=== PATIENT | female | born 1960 | race Caucasian/White ===

== ENCOUNTER 2018-06-09 08:18 | Inpatient (IN) ==
[2018-06-09 08:26] VITALS: BMI 24.9
[2018-06-09] MEDS ORDERED: TORADOL 30 MG VIAL IVP ONE (08:40)
[2018-06-09] MEDS ORDERED: NS 1000 ML 1,000 ML IV ONE (08:40)
[2018-06-09] MEDS ORDERED: ZOFRAN INJ 4 MG VIAL IVP ONE (08:40)
--- NOTE | 2018-06-09 08:43 | DR.CP ---
HPI Time Seen Time Seen by Provider: 06/09/18 08:40 PCP Primary Care Physician: JOEY FULTON HPI Comment HPI Comment: PAIN MAINLY IN RIGHT FLANK AREA. MILD SOB PRESENT. NO FEVER OR DYSURIA. PAIN GETTING WORSE. Complaint Chief Complaint Doctor Comments: WOKE UP 05:00AM TODAY SYBSTERNAL SHARP PAIN RADIATING TO RIGHT FLANK AREA WITH NAUSEA AND VOMITING. Chief Complaint:: PT STATES AROUND 5 AM THIS MORNING SHE WOKE UP WITH SEVERE SHARP STABBING SUBSTERNAL CHEST PAIN THAT HAS RADIATED AROUND TO THEN RIGHT FLANK AND BACK AREA ASSOCIATED WITH NAUSEA AND VOMITING Reviewed Nurses Notes Review: Yes Source History Provided: Patient Mode of Arrival Mode of Arrival: Ambulatory Timing Onset of Chief Complaint: 06/09/18 Came on: Suddenly Pain: Present Now Duration Duration: Constant Duration: Hours Location Location of Chest Pain: Right (RIGHT FLANK) Context Onset: While Asleep Cardiac Risk Factors: None PE Risk Factors: None History of: None Prehospital Care: None Quality Quality: Sharp Severity Severity: Moderate Associated Signs and Symptoms Associated Signs and Symptoms: Shortness of Breath PMH PMH Past Medical History: No Past Surgical History: Yes Surgical History: Family History History of Family Medical Conditions: Yes Family Medical History: Diabetes Mellitus and Coronary Artery Disease Social History Does patient currently use any type of tobacco product: No Have you used tobacco products in the last 12 months: No Type of Tobacco Use: None Does any household member use tobacco: No Alcohol Use: None Do you use any recreational Drugs:: No Lives With: Alone Lives Where: Home infectious screening In the last 2 months have you had wt loss of >10#?: NO Have you had fever, night sweats or hemotysis?: No Have you traveled outside the country in the last 6 months?: No Isolation: Standard ROS Review of Systems Constitutional: No Symptoms Reported Eyes: No Symptoms Reported ENTM: No Symptoms Reported Respiratoy: No Symptoms Reported Cardiovascular: No Symptoms Reported Gastrointestinal/Abdominal: No Symptoms Reported Genitourinary: No Symptoms Reported and Other (RIGHT FLANK PAIN) Neurological: No Symptoms Reported Musculoskeletal: No Symptoms Reported and Right (RIGHT FLANK PAIN.) Integumentary: No Symptoms Reported Hematologic/Lymphatic: No Symptoms Reported Endocrine: No Symptoms Reported Psychiatric: No Symptoms Reported All Other Systems: Reviewed and Negative PE Vitals Vitals: Temperature 100.6 F Pulse Rate [Apical] 139 Pulse Rate 125 Respiratory Rate 21 Blood Pressure [Right Arm] 121/60 Blood Pressure 133/86 O2 Sat by Pulse Oximetry 96 General Limitations: No Limitations General Appearance: Alert and In No Apparent Distress Head Head Exam: Normal Inspection Eyes Eye exam: Normal Appearance ENT ENT Exam: Normal Exam Chest Chest Inspection: Normal Inspection Respiratory Respiratory Exam: Normal Lung Sounds Bilat Respiratory Exam: Bilateral: Clear to Auscultation Cardiovascular Cardiovascular Exam: Regular Rate Pulse: Normal Edema: Normal Abdominal Exam Abdominal Exam: Normal Inspection Extremities Extremities Exam: Normal Inspection Back Back Exam: (R) CVA Tenderness Neurologic Neurological Exam: Alert and Oriented X3; negative Motor Sensory Deficit Psychiatric Psychiatric Exam: Normal Affect and Normal Mood Skin Skin Exam: Intact MDM Additional Information Additional Information Obtained From: Family Differential Diagnosis Differential Diagnosis: Chest Wall Pain, Cholelithasis (KIDNEY STONE, UTI), Costochondritis, Myocardial Infarction and Pancreatitis COURSE Treatment Treatment: SEE ORDERS. Consultation Consultation Comments: SHERRI DELEON WILL ADMIT PATIENT. ROR Labs Reviewed Laboratory Results Reviewed?: Yes Result Diagrams: 06/09/18 08:45 06/09/18 08:45 Laboratory: WBC 10.1 X10^3/uL (3.6-10.0) H 06/09/18 08:45 RBC 4.83 X10^6/uL (3.5-5.4) 06/09/18 08:45 Hgb 14.3 g/dL (12.0-16.0) 06/09/18 08:45 Hct 42.0 % (36.0-47.0) 06/09/18 08:45 MCV 86.9 fL (80.0-100.0) 06/09/18 08:45 MCH 29.7 pg (27.0-34.0) 06/09/18 08:45 MCHC 34.1 g/dL (33.0-35.0) 06/09/18 08:45 RDW 13.0 % (11.6-16.5) 06/09/18 08:45 Plt Count 271 X10^3/uL (150.0-450.0) 06/09/18 08:45 Plt Count Comment Adequate (ADEQUATE) 06/09/18 08:45 MPV 6.8 fL (7.4-11.0) L 06/09/18 08:45 Neut % (Auto) 88.0 % (42.0-75.0) H 06/09/18 08:45 Lymph % (Auto) 7.5 % (21.0-51.0) L 06/09/18 08:45 [place] % (Auto) 4.0 % (0.0-13.0) 06/09/18 08:45 Eos % (Auto) 0.0 % (0.9-2.9) L 06/09/18 08:45 Baso % (Auto) 0.5 % (0.2-1.0) 06/09/18 08:45 Neut # (Auto) 8.9 x10^3/uL (2.2-4.8) H 06/09/18 08:45 Lymph # (Auto) 0.8 X10^3/uL (1.3-2.9) L 06/09/18 08:45 [place] # (Auto) 0.4 x10^3/uL (0.3-0.8) 06/09/18 08:45 Eos # (Auto) 0.0 x10^3/uL (0.0-0.2) 06/09/18 08:45 Baso # (Auto) 0.0 X10^3/uL (0.0-0.1) 06/09/18 08:45 Absolute Nucleated RBC 0.1 /100WBC 06/09/18 08:45 Total Counted 100 06/09/18 08:45 Neutrophils % (Manual) 82 % (39-76) H 06/09/18 08:45 Band Neutrophils % 6 % (0-10) 06/09/18 08:45 Lymphocytes % (Manual) 4 % (13-43) L 06/09/18 08:45 Monocytes % (Manual) 7 % (4-9) 06/09/18 08:45 Eosinophils % (Manual) 1 % (0-6) 06/09/18 08:45 Plt Morphology Comment Normal (NORMAL) 06/09/18 08:45 RBC Morphology Normal (NORMAL) 06/09/18 08:45 D-Dimer 341 ng/mL (0-400) 06/09/18 08:45 Sample Site [place] 06/09/18 10:45 ABG pH 7.430 (7.35-7.45) 06/09/18 10:45 ABG pCO2 35.0 mmHg (35.0-45.0) 06/09/18 10:45 ABG pO2 58.0 mmHg (80.0-100.0) L 06/09/18 10:45 ABG HCO3 23.2 mmol/L (22-26) 06/09/18 10:45 ABG O2 Saturation 91.0 % (90-100) 06/09/18 10:45 ABG Base Excess -0.7 mmol/L (-2.0-2.0) 06/09/18 10:45 Lam Test Pos 06/09/18 10:45 A-a Gradient 48.0 mmHg 06/09/18 10:45 FiO2 21.0 06/09/18 10:45 Blood Gas Comments Pt [facility] well elj 06/09/18 10:45 Sodium 140 mmol/L (136-145) 06/09/18 08:45 Corrected Sodium 140 mmol/L (136-145) 06/09/18 08:45 Potassium 3.6 mmol/L (3.5-5.1) 06/09/18 08:45 Chloride 104 mmol/L (98-107) 06/09/18 08:45 Carbon Dioxide 25.7 mmol/L (21-32) 06/09/18 08:45 BUN 15 mg/dL (7-18) 06/09/18 08:45 Creatinine 0.86 mg/dL (0.55-1.02) 06/09/18 08:45 Est GFR (MDRD) Af Amer > 60 (>60) 06/09/18 08:45 Est GFR (MDRD) Non-Af > 60 (>60) 06/09/18 08:45 Glucose 119 mg/dL (65-99) H 06/09/18 08:45 Calcium 9.0 mg/dL (8.5-10.1) 06/09/18 08:45 Corrected Calcium TNP 06/09/18 08:45 Total Bilirubin 0.60 mg/dL (0.2-1.0) 06/09/18 08:45 AST 73 Units/L (15-37) H 06/09/18 08:45 ALT 96 Units/L (12-78) H 06/09/18 08:45 Alkaline Phosphatase 131 Units/L (46-116) H 06/09/18 08:45 Creatine Kinase 63 Units/L (26-192) 06/09/18 08:45 CK-MB (CK-2) 1.2 ng/mL (0-4.0) 06/09/18 08:45 CK/CKMB % Calc 1.9 % (<4) 06/09/18 08:45 Troponin I < 0.02 ng/mL (0-1.5) 06/09/18 08:45 Total Protein 7.6 g/dL (6.4-8.2) 06/09/18 08:45 Albumin 3.8 g/dL (3.4-5.0) 06/09/18 08:45 Globulin 3.8 g/dL (2.5-4.5) 06/09/18 08:45 Albumin/Globulin Ratio 1.0 Ratio (1.1-2.1) L 06/09/18 08:45 Amylase 39 Units/L (25-115) 06/09/18 08:45 Lipase 72 Units/L (73-393) L 06/09/18 08:45 Specimen Type Clean catch urine 06/09/18 10:05 Urine Color Yellow (YELLOW) 06/09/18 10:05 Urine Appearance Slightly hazy (CLEAR) 06/09/18 10:05 Urine pH 6.0 (5.0 - 8.0) 06/09/18 10:05 Ur Specific [place] 1.020 (1.000-1.030) 06/09/18 10:05 Urine Protein 1+ (NEGATIVE) 06/09/18 10:05 Urine Glucose (UA) Negative (NEGATIVE) 06/09/18 10:05 Urine Ketones Negative (NEGATIVE) 06/09/18 10:05 Urine Occult Blood 2+ (NEGATIVE) 06/09/18 10:05 Urine Nitrite Negative (NEGATIVE) 06/09/18 10:05 Urine Bilirubin Negative (NEGATIVE) 06/09/18 10:05 Urine Urobilinogen Normal (NORMAL) 06/09/18 10:05 Ur Leukocyte Esterase 2+ (NEGATIVE) 06/09/18 10:05 Urine RBC 5-10 /HPF (NONE SEEN) 06/09/18 10:05 Urine WBC 0-2 /HPF (NONE SEEN) 06/09/18 10:05 Ur Squamous Epith Cells Rare /HPF (NEGATIVE) 06/09/18 10:05 Urine Bacteria Negative /HPF (NEGATIVE) 06/09/18 10:05 Ur Culture Indicated? No/not indicated 06/09/18 10:05 XRAY XRAY Interpreted by: Radiologist XRAY Findings: REPORT DISCUSS WITH PATIENT.
[2018-06-09 09:01] LABS: BASOPHILS % (AUTO) 0.5 % (0.2-1.0); HEMOGLOBIN 14.3 g/dL (12.0-16.0); LYMPHOCYTES # (AUTO) 0.8 X10^3/uL (1.3-2.9); LYMPHOCYTES % (AUTO) 7.5 % (21.0-51.0); MEAN CORPUSCULAR HEMOGLOBIN 29.7 pg (27.0-34.0); MEAN CORPUSCULAR HGB CONC 34.1 g/dL (33.0-35.0); MEAN CORPUSCULAR VOLUME 86.9 fL (80.0-100.0); MEAN PLATELET VOLUME 6.8 fL (7.4-11.0); MONOCYTES # (AUTO) 0.4 x10^3/uL (0.3-0.8); NEUTROPHILS # (AUTO) 8.9 x10^3/uL (2.2-4.8); PLATELET COUNT 271 X10^3/uL (150.0-450.0); RED BLOOD COUNT 4.83 X10^6/uL (3.5-5.4); WHITE BLOOD COUNT 10.1 X10^3/uL (3.6-10.0)
[2018-06-09 09:20] LABS: BLOOD UREA NITROGEN 15 mg/dL (7-18); CARBON DIOXIDE 25.7 mmol/L (21-32); CHLORIDE 104 mmol/L (98-107); COR NA(FOR HYPERGLY) 140 mmol/L (136-145); CREATININE 0.86 mg/dL (0.55-1.02); SODIUM 140 mmol/L (136-145); TROPONIN I < 0.02 ng/mL (0-1.5); eGFR NON BLACK RACES > 60 (>60)
[2018-06-09 09:22] LABS: BAND NEUTROPHILS % 6 % (0-10); PLATELET MORPHOLOGY COMMENT NORMAL (NORMAL)
[2018-06-09 09:24] LABS: ALANINE AMINOTRANSFERASE 96 Units/L (12-78); ALBUMIN 3.8 g/dL (3.4-5.0); ALKALINE PHOSPHATASE 131 Units/L (46-116); AMYLASE 39 Units/L (25-115); ASPARTATE AMINO TRANSFERASE 73 Units/L (15-37); CKMB % 1.9 % (<4); CREATINE KINASE 63 Units/L (26-192); CREATINE KINASE MB 1.2 ng/mL (0-4.0); LIPASE 72 Units/L (73-393); TOTAL PROTEIN 7.6 g/dL (6.4-8.2)
--- NOTE | 2018-06-09 10:08 | RAD ---
HISTORY: Patient awoke at 5:00 a.m. this morning with severe sharp stabbing substernal chest pain Study: Two-view chest Comparison: None Technique: EKG leads overlie the thorax. Findings: The heart size configuration airway are normal vascularity is normal on the left. The airway is normal. There is right hilar fullness suspicious for mass posterior to the right hilum on the lateral view with perihilar infiltrate suspicious for postobstructive pneumonia. Follow-up with chest CT is recommended. A CT abdomen was ordered and on the CT abdomen there is fullness in the right hilum with a perihilar infiltrate on the right which is incompletely imaged as this was an abdomen not a chest CT. I recommend evaluating the chest as well as the abdomen 4 there is perihilar infiltrate and possible mass. IMPRESSION: 1. Right perihilar infiltrate and possible mass is well. Recommend CT of the chest. CT of the The abdomen is been performed as a stone search but the chest was on not completely included on that study. Reported By:
[2018-06-09 10:24] LABS: BILIRUBIN,URINE NEGATIVE (NEGATIVE); BLOOD/HEMOGLOBIN,URINE 2+ (NEGATIVE); GLUCOSE, URINE NEGATIVE (NEGATIVE); KETONES,URINE NEGATIVE (NEGATIVE); LEUKOCYTE ESTERASE ,URINE 2+ (NEGATIVE); NITRITES,URINE NEGATIVE (NEGATIVE); PROTEIN,URINE 1+ (NEGATIVE); UROBILINOGEN,URINE NORMAL (NORMAL)
--- NOTE | 2018-06-09 10:31 | CT ---
HISTORY: Right flank pain. Pain started around 5:00 a.m. this morning. Patient woke up with severe sharp stabbing substernal chest pain that is radiating around to the right flank and back area, associated with nausea and vomiting. Study: CT abdomen and pelvis without IV contrast Comparison: No priors Technique: Multiple axial images of the abdomen and pelvis were obtained from the lung bases to the pubic symphysis without the administration of IV or oral contrast. Coronal and sagittal images are also reviewed. Dose reduction techniques utilized automatic exposure control. Findings: A dense but partially imaged right lower lobe infiltrate is seen. This should be further evaluated by CT scanning of the chest. I would encourage the use of IV contrast to exclude underlying mass in this region. No pleural fluid is seen. Left lung base is clear. There are bilateral breast implants. The liver, spleen, pancreas, left kidney and adrenal glands are unremarkable in their CT appearance. The gallbladder is unremarkable in its CT appearance. A tiny, nonobstructing stone is seen in the lower pole of the right kidney. This measures about 2 mm in diameter. No evidence perinephric stranding, mass or hydronephrosis is seen involving either kidney. No significant mesenteric lymphadenopathy or stranding can be observed. No free fluid or free air is seen within the abdomen. No bowel wall thickening or bowel dilatation is present. The appendix is not confidently identified. No pericecal mass or fluid is seen. The colon is unremarkable. Specifically, there is no diverticulosis noted within the sigmoid colon. The urinary bladder is grossly unremarkable. The uterus is slightly prominent. No adnexal mass or free cul-de-sac fluid is seen. The bony structures are grossly intact. IMPRESSION: Dense, partially imaged right lower lobe infiltrate. CT scanning of the chest with IV contrast should be performed. An underlying mass will need to be excluded. Tiny nonobstructing stone in the lower pole of the right kidney. No evidence of perinephric stranding, mass or hydronephrosis is seen. Non identification of the appendix. No pericecal mass or fluid is identified. Prominent uterus. No adnexal mass or free cul-de-sac fluid is seen. Reported By:
[2018-06-09] MEDS ORDERED: SALINE 3% 15 ML NEB TX ONE (10:39)
[2018-06-09] MEDS ORDERED: LEVAQUIN PREMIX IV 750 MG 750 MG/150 ML BAG IV ONE ×2 (10:42→10:48)
[2018-06-09] MEDS ORDERED: MORPHINE SULFATE INJ 4 MG IVP ONE (10:45)
[2018-06-09] MEDS ORDERED: MORPHINE SULFATE INJ 4 MG ONE ×2 (10:49→15:16)
[2018-06-09] MEDS ORDERED: XOPENEX 1.25 MG/3 ML NEBULE NEB ONE ×2 (10:50→10:53)
[2018-06-09] MEDS ORDERED: SALINE 3% 15 ML NEB TX NEB ONE (10:50)
[2018-06-09 10:52] LABS: APPEARANCE,URINE SLIGHTLY HAZY (CLEAR); COLOR,URINE YELLOW (YELLOW)
[2018-06-09 10:53] LABS: BACTERIA,URINE NEGATIVE /HPF (NEGATIVE); SQUAMOUS EPITHELIAL CELL,UR RARE /HPF (NEGATIVE)
[2018-06-09 11:00] LABS: ABG ALLEN TEST POS; ABG BASE EXCESS -0.7 mmol/L (-2.0-2.0); ABG HCO3 23.2 mmol/L (22-26)
[2018-06-09] MEDS: NS 1000 ML 1,000 ML IV SCH ×2 (11:16→21:00)
--- NOTE | 2018-06-09 12:13 | CT ---
HISTORY: Chest pain, dense right perihilar infiltrate Study: CTA chest Comparison: Chest x-ray done 06/09/2018 at 10:02 a.m. Technique: Multiple axial images of the chest were obtained from the thoracic inlet to the upper abdomen during the administration of IV contrast. In addition to standard multi planar reconstructions, MIP reconstructions were performed in coronal, axial and sagittal planes. Dose reduction techniques utilized automatic exposure control. Findings: The mediastinum does not demonstrate significant pathological lymphadenopathy. There is no pericardial effusion observed. The thoracic aorta is normal in its contour without evidence for aneurysmal dilatation. The central pulmonary arterial system does not demonstrate central filling defects to suggest pulmonary emboli. Evaluation of the lung parenchyma reveals dense infiltrates present in the right perihilar region with extension primarily into the superior segment of the right lower lobe, but with also some extension into the medial aspect of the right upper lobe. No evidence of discrete mass formation is seen, but the findings should be followed to complete clearing, radiographically. There are changes mild emphysema in the lung apices, particularly the right upper lobe with cylindrical bronchiectasis bilaterally. No pleural effusion is seen. Milder infiltrates are seen involving the left lower lobe. Air and fluid are present involving the esophagus, likely indicating gastroesophageal reflux. Some of the findings may be on the basis of aspiration. Very mild infiltrates are seen involving the anterior segment of the right lower lobe. The liver and adrenal glands unremarkable. Osseous structures are intact. There are bilateral breast implants. No pulmonary nodule or mass can be identified. The bony thorax is unremarkable in its appearance. The visualized portions of the upper abdomen are grossly unremarkable. IMPRESSION: Bilateral lung infiltrates, very dense in the right hilar region, but without apparent underlying mass effect. Follow-up to complete clearing is suggested radiographically. Since there is air in fluid present within the esophagus, indicating gastroesophageal reflux, a component of aspiration may be present.. No evidence of pulmonary nodule or adenopathy or effusion. No evidence of pulmonary embolus or thoracic aortic aneurysm. Reported By:
[2018-06-09] MEDS: TYLENOL 325 MG TAB PO PRN (13:18)
[2018-06-09] MEDS: FORTAZ or TAZICEF VIAL INJ IVP SCH ×2 (14:14→21:39)
[2018-06-09] MEDS: ROBITUSSIN DM PO SCH ×3 (14:14→21:38)
[2018-06-09] MEDS ORDERED: ZOFRAN INJ 4 MG VIAL IVP PRN (15:13)
[2018-06-09] MEDS ORDERED: ZOFRAN INJ 4 MG VIAL ONE (15:16)
[2018-06-09] MEDS: MORPHINE SULFATE INJ 4 MG IVP PRN ×2 (15:30→19:47)
[2018-06-09] MEDS: XOPENEX 1.25 MG/3 ML NEBULE NEB SCH ×2 (16:26→20:45)
--- NOTE | 2018-06-09 18:03 | DR.H&P ---
H&P - History & Physical for Day of: H&P Date: 06/09/18 - Chief Complaint Chief Complaint: FLANK PAIN, CHEST PAIN, SOB, NAUSEA, VOMITING - History of Present Illness History of Present Illness: IS A 57 YEAR OLD PATIENT OF [employer] WHO PRESENTED TO THE EMERGENCY ROOM WITH COMPLAINTS OF RIGHT FLANK PAIN, SUBSTERNAL PAIN, SHORTNESS OF BREATH, NAUSEA, AND VOMITING. SHE REPORTS THAT PAIN WOKE HER UP AROUND 5AM TODAY. ON ARRIVAL, VITALS WERE 97.9-127-22-94%-133/86. LABS WERE OBTAINED. ABNORMAL LAB VALUES INCLUDE THE FOLLOWING: WBC 10.1, GLUCOSE 119, AST 73, ALT 96, ALK PHOS 131. CARDIAC ENZYMES WITHIN NORMAL LIMITS. URINALYSIS REVEALED: WBC 0-2, RBC 5-10, LEUKOCYTES 2+, OCCULT BLOOD 2+, PROTEIN 1+. AN ABDOMEN/PELVIS CT WITHOUT CONTRAST WAS OBTAINED AND REVEALED: Dense, partially imaged right lower lobe infiltrate. CT scanning of the chest with IV contrast should be performed. An underlying mass will need to be excluded. Tiny nonobstructing stone in the lower pole of the right kidney. No evidence of perinephric stranding, mass or hydronephrosis is seen. Non- identification of the appendix. No pericecal mass or fluid is identified. Prominent uterus. No adnexal mass or free cul-de-sac fluid is seen. CHEST XRAY REVEALED: Right perihilar infiltrate and possible mass is well. Recommend CT of the chest. CT of the The abdomen is been performed as a stone search but the chest was on not completely included on that study. CHEST CTA WAS OBTAINED AND REVEALED: Bilateral lung infiltrates, very dense in the right hilar region, but without apparent underlying mass effect. Follow-up to complete clearing is suggested radiographically. Since there is air in fluid present within the esophagus, indicating gastroesophageal reflux, a component of aspiration may be present. No evidence of pulmonary nodule or adenopathy or effusion. No evidence of pulmonary embolus or thoracic aortic aneurysm. EKG REVEALED: SINUS TACHYCARDIA WITH HR 114. SHE WAS GIVEN A NEB TX, MORPHINE 4MG IV X 1, ZOFRAN 4MG IV X 1, LEVAQUIN 750MG IV X 1, TORADOL 30MG IV X 1, AND A NORMAL SALINE BOLUS IN THE ER. SHE WAS ADMITTED FOR FURTHER EVAUATION AND TREATMENT OF BILATERAL LOWER LOBE LOBE PNEUMONIA AND RIGHT FLANK PAIN. SHE WAS STARTED ON NORMAL SALINE AT 125ML/HR, LEVAQUIN 750MG IV DAILY, FORTAZ 1GM IV Q8H, RESPIRATORY TREATMENTS, MORPHINE 4MG IV Q4H PRN, AND ZOFRAN 4MG IV Q8H PRN. WE PLAN TO FOLLOW UP WITH AM LABS AND CHEST XRAY AND CONTINUE TO MONITOR. - Past Surgical History Surgical History: - Family History Family Medical History: Diabetes Mellitus, Coronary Artery Disease - Social History Does patient currently use any type of tobacco product: No Have you used tobacco products in the last 12 months: No Type of Tobacco Use: None Does any household member use tobacco: No Alcohol Use: None Drug Use: None - Medications Home Medications: No Known Drug Allergies Allergy (Verified 06/09/18 08:52) CONTINUE taking the following medications NK 06/09/18 [History] - Review of Systems Constitutional: Fever, Chills Eyes: No Symptoms Reported ENT: No Symptoms Reported Respiratory: Shortness of Breath Cardiovascular: Chest Pain Gastrointestinal: Nausea, Vomiting Musculoskeletal: Other (right flank pain ) Skin: No Symptoms Reported Neurological: No Symptoms Reported - Physical Exam Vital Signs: Temperature 98.5 F Pulse Rate [Apical] 139 Pulse Rate 142 Respiratory Rate 23 Blood Pressure [Right Arm] 121/60 Blood Pressure 96/52 O2 Sat by Pulse Oximetry 97 Oriented: Normal Eyes: Normal Ear: Normal Nose: Normal Throat: Normal Respiratory: Diminished Throughout Cardiovascular: Tachycardia. negative: S3, S4, Murmur : Normal Auscultation: Bowel Sounds: Increased Palpation: Normal Tenderness: Other (right flank pain ) Skin: Normal Musculoskeletal: Right (right flank pain ) Psychiatric: Normal Mood Description: Calm Affect: Normal Speech Pattern: Clear - Assessment/Plan (1) Pneumonia Qualifiers: Pneumonia type: due to unspecified organism Laterality: bilateral Lung location: unspecified part of lung Qualified Code(s): J18.9 - Pneumonia, unspecified organism Status: Acute Plan: pneumonia protocol, fortaz, levaquin, respiratory treatments, supplemental oxygen, tessalon, tussionex, continue to monitor - Allergies Allergies/Adverse Reactions: Allergies Allergy/AdvReac Type Severity Reaction Status Date / Time No Known Drug Allergies Allergy Verified 06/09/18 08:52
[2018-06-09] MEDS ORDERED: VIBRAMYCIN 100 MG in NS 100 ML IV + SPIKE MINIBAG* 100 ML IV SCH (21:00)
[2018-06-10] MEDS: TYLENOL 325 MG TAB PO PRN ×3 (02:12→19:20)
[2018-06-10] MEDS: FORTAZ or TAZICEF VIAL INJ IVP SCH ×3 (05:58→21:25)
[2018-06-10] MEDS: NS 1000 ML 1,000 ML IV SCH ×2 (06:02→15:56)
--- NOTE | 2018-06-10 06:07 | RAD ---
HISTORY: Shortness of breath Study: Single-view chest Comparison: Chest x-ray and CTA of the chest done 06/09/2018. Findings: Trachea is midline. The heart size is normal. Mild infiltrates are present in the left lung base. Increasing right perihilar infiltrates are seen with likely right pleural effusion. There is volume loss with elevation of the right hemidiaphragm. No pneumothorax is seen. Osseous structures are intact. IMPRESSION: Progression of right-sided perihilar infiltrates with volume loss, elevation of the right hemidiaphragm and likely pleural effusion. Very mild left basilar infiltrates are present. Reported By:
[2018-06-10 06:35] LABS: BASOPHILS % (AUTO) 0.3 % (0.2-1.0); HEMATOCRIT 32.8 % (36.0-47.0); HEMOGLOBIN 11.1 g/dL (12.0-16.0); LYMPHOCYTES # (AUTO) 1.1 X10^3/uL (1.3-2.9); LYMPHOCYTES % (AUTO) 9.9 % (21.0-51.0); MEAN CORPUSCULAR HEMOGLOBIN 29.4 pg (27.0-34.0); MEAN CORPUSCULAR HGB CONC 33.9 g/dL (33.0-35.0); MEAN CORPUSCULAR VOLUME 86.6 fL (80.0-100.0); MEAN PLATELET VOLUME 7.3 fL (7.4-11.0); MONOCYTES # (AUTO) 0.7 x10^3/uL (0.3-0.8); MONOCYTES % (AUTO) 6.1 % (0.0-13.0); NEUTROPHILS # (AUTO) 9.3 x10^3/uL (2.2-4.8); NEUTROPHILS % (AUTO) 83.7 % (42.0-75.0); PLATELET COUNT 236 X10^3/uL (150.0-450.0); RED BLOOD COUNT 3.79 X10^6/uL (3.5-5.4); RED CELL DISTRIBUTION WIDTH 13.2 % (11.6-16.5); WHITE BLOOD COUNT 11.1 X10^3/uL (3.6-10.0)
[2018-06-10 06:40] LABS: ALANINE AMINOTRANSFERASE 48 Units/L (12-78); ALBUMIN 2.7 g/dL (3.4-5.0); ALKALINE PHOSPHATASE 80 Units/L (46-116); ASPARTATE AMINO TRANSFERASE 35 Units/L (15-37); BLOOD UREA NITROGEN 14 mg/dL (7-18); CALCIUM 8.1 mg/dL (8.5-10.1); CARBON DIOXIDE 21.9 mmol/L (21-32); CHLORIDE 103 mmol/L (98-107); COR CA(FOR HYPOALB) 9.1 mg/dL (8.5-10.1); CREATININE 0.91 mg/dL (0.55-1.02); SODIUM 137 mmol/L (136-145); TOTAL PROTEIN 6.1 g/dL (6.4-8.2); eGFR NON BLACK RACES > 60 (>60)
[2018-06-10 06:56] LABS: BAND NEUTROPHILS % 18 % (0-10); MAGNESIUM 1.3 mg/dL (1.7-2.9); PLATELET MORPHOLOGY COMMENT NORMAL (NORMAL)
[2018-06-10 07:04] LABS: LACTIC ACID 2.2 mmol/L (0.4-2.0)
[2018-06-10] MEDS: LEVAQUIN PREMIX IV 750 MG 750 MG/150 ML BAG IV SCH (08:38)
[2018-06-10] MEDS: ROBITUSSIN DM PO SCH ×4 (08:38→21:25)
[2018-06-10] MEDS: XOPENEX 1.25 MG/3 ML NEBULE NEB SCH ×2 (09:30→18:17)
[2018-06-10] MEDS ORDERED: NS 1000 ML 1,000 ML IV ONE (09:37)
[2018-06-10] MEDS: TORADOL 30 MG VIAL IVP PRN ×2 (09:55→15:56)
[2018-06-10] MEDS: LOVENOX INJ 40 MG SYR SC SCH (11:48)
[2018-06-10] MEDS ORDERED: SALINE 0.9% 3 ML NEB TX NEB ONE (13:08)
[2018-06-10] MEDS: TUSSIONEX PENNKINETIC SUSP PO PRN (21:45)
[2018-06-10] MEDS: MAGNESIUM SULFATE 1 GRAM/100 mL PREMIX 1 GM/100 ML BAG IV PRN ×2 (22:02→23:17)
[2018-06-11] MEDS: MAGNESIUM SULFATE 1 GRAM/100 mL PREMIX 1 GM/100 ML BAG IV PRN ×2 (00:19→01:25)
[2018-06-11] MEDS: XOPENEX 1.25 MG/3 ML NEBULE NEB SCH ×4 (00:38→16:22)
[2018-06-11] MEDS: NS 1000 ML 1,000 ML IV SCH ×4 (05:16→23:06)
[2018-06-11] MEDS: TORADOL 30 MG VIAL IVP PRN ×2 (05:25→18:02)
[2018-06-11] MEDS: FORTAZ or TAZICEF VIAL INJ IVP SCH ×3 (05:30→21:14)
--- NOTE | 2018-06-11 05:57 | RAD ---
Chest, one view Indication: Shortness of breath Comparison: 06/10/2018 Findings: The heart is normal in size. Airspace opacities within the right greater than left lower lobes appear essentially unchanged since prior exam. There is a stable suspected trace right pleural effusion. The upper lungs remain clear. No pneumothorax identified. Impression: Stable trace right pleural effusion and right greater than left lower lobe airspace disease. Reported By:
[2018-06-11 06:12] LABS: BASOPHILS % (AUTO) 0.2 % (0.2-1.0); EOSINOPHILS % (AUTO) 0.1 % (0.9-2.9); HEMATOCRIT 32.7 % (36.0-47.0); HEMOGLOBIN 11.1 g/dL (12.0-16.0); LYMPHOCYTES # (AUTO) 1.1 X10^3/uL (1.3-2.9); LYMPHOCYTES % (AUTO) 6.8 % (21.0-51.0); MEAN CORPUSCULAR HEMOGLOBIN 29.2 pg (27.0-34.0); MEAN CORPUSCULAR HGB CONC 33.8 g/dL (33.0-35.0); MEAN CORPUSCULAR VOLUME 86.3 fL (80.0-100.0); MEAN PLATELET VOLUME 7.3 fL (7.4-11.0); MONOCYTES # (AUTO) 0.7 x10^3/uL (0.3-0.8); MONOCYTES % (AUTO) 4.5 % (0.0-13.0); NEUTROPHILS # (AUTO) 14.1 x10^3/uL (2.2-4.8); NEUTROPHILS % (AUTO) 88.4 % (42.0-75.0); PLATELET COUNT 239 X10^3/uL (150.0-450.0); RED BLOOD COUNT 3.79 X10^6/uL (3.5-5.4); RED CELL DISTRIBUTION WIDTH 13.2 % (11.6-16.5); WHITE BLOOD COUNT 15.9 X10^3/uL (3.6-10.0)
[2018-06-11 06:27] LABS: ALANINE AMINOTRANSFERASE 37 Units/L (12-78); ALBUMIN 2.4 g/dL (3.4-5.0); ALKALINE PHOSPHATASE 103 Units/L (46-116); ASPARTATE AMINO TRANSFERASE 26 Units/L (15-37); BLOOD UREA NITROGEN 11 mg/dL (7-18); CARBON DIOXIDE 23.6 mmol/L (21-32); CHLORIDE 105 mmol/L (98-107); COR CA(FOR HYPOALB) 9.3 mg/dL (8.5-10.1); CREATININE 0.75 mg/dL (0.55-1.02); MAGNESIUM 2.5 mg/dL (1.7-2.9); SODIUM 140 mmol/L (136-145); TOTAL PROTEIN 5.9 g/dL (6.4-8.2); eGFR NON BLACK RACES > 60 (>60)
[2018-06-11 06:39] LABS: BAND NEUTROPHILS % 7 % (0-10); PLATELET MORPHOLOGY COMMENT NORMAL (NORMAL)
[2018-06-11] MEDS: ROBITUSSIN DM PO SCH ×4 (08:19→20:39)
[2018-06-11] MEDS: LEVAQUIN PREMIX IV 750 MG 750 MG/150 ML BAG IV SCH (08:19)
[2018-06-11] MEDS: LOVENOX INJ 40 MG SYR SC SCH (09:49)
[2018-06-11] MEDS: TUSSIONEX PENNKINETIC SUSP PO PRN ×2 (09:50→21:14)
[2018-06-11] MEDS ORDERED: POTASSIUM CHL 40 MEQ/NS 0.45% 500 ML IV PRN (10:22)
[2018-06-11] MEDS ORDERED: MICRO K EXTEN CAP 10 MEQ PO PRN (10:22)
[2018-06-11] MEDS ORDERED: K-RIDER 10 MEQ/NS 100 ML 10 MEQ/100 ML BAG IV PRN (10:22)
[2018-06-11] MEDS ORDERED: POTASSIUM CHL 60 MEQ/NS 0.45% 500 ML IV PRN (10:22)
[2018-06-11] MEDS ORDERED: KLOR-CON PO PRN (10:22)
[2018-06-11] MEDS ORDERED: POTASSIUM CHLORIDE LIQ 20 MEQ UDC PO PRN (10:22)
[2018-06-11] MEDS: TYLENOL 325 MG TAB PO PRN ×2 (10:38→15:30)
[2018-06-11] MEDS ORDERED: NS 50 ML IV 50 ML IV ONE (15:10)
[2018-06-11] MEDS: K-DUR TAB 20 MEQ PO PRN (17:34)
[2018-06-12] MEDS: XOPENEX 1.25 MG/3 ML NEBULE NEB SCH ×5 (00:50→19:04)
[2018-06-12] MEDS: TYLENOL 325 MG TAB PO PRN ×3 (01:12→18:10)
[2018-06-12] MEDS: NS 1000 ML 1,000 ML IV SCH ×5 (03:29→20:10)
--- NOTE | 2018-06-12 06:06 | RAD ---
Examination: AP chest History: SOB Comparison 06/11/2018 Findings: Stable heart size. Extensive confluent pulmonary infiltrates in the right lung again noted with minimal similar findings at the left base. No large pleural effusion or complicating pneumothorax. Impression: Persistent asymmetric infiltrates with no significant change since 1 day prior Reported By:
[2018-06-12 06:10] LABS: BASOPHILS # (AUTO) 0.1 X10^3/uL (0.0-0.1); BASOPHILS % (AUTO) 0.5 % (0.2-1.0); EOSINOPHILS # (AUTO) 0.1 x10^3/uL (0.0-0.2); EOSINOPHILS % (AUTO) 0.5 % (0.9-2.9); HEMATOCRIT 28.1 % (36.0-47.0); HEMOGLOBIN 9.7 g/dL (12.0-16.0); LYMPHOCYTES # (AUTO) 1.7 X10^3/uL (1.3-2.9); MEAN CORPUSCULAR HEMOGLOBIN 29.6 pg (27.0-34.0); MEAN CORPUSCULAR HGB CONC 34.3 g/dL (33.0-35.0); MEAN CORPUSCULAR VOLUME 86.3 fL (80.0-100.0); MEAN PLATELET VOLUME 7.4 fL (7.4-11.0); MONOCYTES # (AUTO) 0.9 x10^3/uL (0.3-0.8); MONOCYTES % (AUTO) 6.7 % (0.0-13.0); NEUTROPHILS % (AUTO) 80.3 % (42.0-75.0); PLATELET COUNT 238 X10^3/uL (150.0-450.0); RED BLOOD COUNT 3.26 X10^6/uL (3.5-5.4); RED CELL DISTRIBUTION WIDTH 13.5 % (11.6-16.5); WHITE BLOOD COUNT 13.7 X10^3/uL (3.6-10.0)
[2018-06-12 06:29] LABS: ALANINE AMINOTRANSFERASE 29 Units/L (12-78); ALKALINE PHOSPHATASE 111 Units/L (46-116); ASPARTATE AMINO TRANSFERASE 19 Units/L (15-37); BLOOD UREA NITROGEN 9 mg/dL (7-18); CALCIUM 7.8 mg/dL (8.5-10.1); CARBON DIOXIDE 22.9 mmol/L (21-32); CHLORIDE 107 mmol/L (98-107); COR CA(FOR HYPOALB) 9.4 mg/dL (8.5-10.1); CREATININE 0.66 mg/dL (0.55-1.02); SODIUM 142 mmol/L (136-145); TOTAL PROTEIN 5.4 g/dL (6.4-8.2); eGFR NON BLACK RACES > 60 (>60)
[2018-06-12] MEDS: FORTAZ or TAZICEF VIAL INJ IVP SCH ×3 (06:44→21:10)
[2018-06-12] MEDS: ROBITUSSIN DM PO SCH ×4 (09:17→21:10)
[2018-06-12] MEDS: LEVAQUIN PREMIX IV 750 MG 750 MG/150 ML BAG IV SCH (09:18)
[2018-06-12] MEDS: LOVENOX INJ 40 MG SYR SC SCH (09:19)
[2018-06-12] MEDS: K-DUR TAB 20 MEQ PO PRN (09:20)
--- NOTE | 2018-06-12 12:21 | PCM.PROG ---
Progress Note - Progress Note for Day of Date of Exam: 06/10/18 - Subjective Subjective: WAS ADMITTED FOR BILATERAL LOWER LOBE PNEUMONIA. TODAY, SHE IS ALERT AND ORIENTED, LYING IN BED ON MORNING ROUNDS. SHE CONTINUES WITH COMPLAINTS OF A NON-PRODUCTIVE COUGH AND SHORTNESS OF BREATH. SHE ALSO CONTINUES WITH FLANK PAIN AND PAIN TO THE RIGHT UPPER RIB AREA. ON EXAMINATION, HEART IS REGULAR IN RATE AND RHYTHM. BILATERAL LUNGS ARE NOTED WITH DIMINISHED LUNG SOUNDS THROUGHT. ABDOMEN IS FLAT, SOFT, AND NON-TENDER WITH NORMAL BOWEL SOUNDS NOTED IN ALL QUADRANTS. HER VITALS THIS MORNING ARE 98.6-101-19-99%-97/56. LABS WERE OBTAINED. ABNORMAL LAB VALUES INCLUDE THE FOLLOWING: WBC 11.1, HGB 11.1, HCT 32.8, CALCIUM 8.1, TOTAL PROTEIN 6.1, ALBUMIN 2.7, LACTIC ACID 2.2, MA GNESIUM 1.3. TODAYS CHEST XRAY REVEALED: Progression of right-sided perihilar infiltrates with volume loss, elevation of the right hemidiaphragm and likely pleural effusion. Very mild left basilar infiltrates are present. SHE IS CURRENTLY RECEIVING LEVAQUIN IV AND FORTAZ IV WELL RESPIRATORY TREATMENTS, SUPPLEMENTAL OXYGEN, AND TUSSIONEX. WE WILL CONTINUE WITH CURRENT PLAN OF CARE TODAY AND ADD TORADOL 30MG IV Q6H PRN FOR PLEURISY. WE WILL ALSO BOLUS HER WITH ONE LITER OF NORMAL SALINE AND THEN INCREASE RATE TO 250ML/HR. OTHERWISE, WE WILL FOLLOW UP WITH AM LABS AND CHEST XRAY AND CONTINUE TO MONITOR. - Past Medical Family Social History Past Med/Fam/Surg Hx: No changes since H&P Allergies: Allergies No Known Drug Allergies Allergy (Verified 06/09/18 08:52) - Review of Systems ROS: No change since H&P - Vital Signs and I&O's Vital Signs: Temperature 99.3 F Pulse Rate [Apical] 139 Pulse Rate 85 Respiratory Rate 16 Blood Pressure [Right Arm] 121/60 Blood Pressure 148/71 O2 Sat by Pulse Oximetry 99 Intake and Output: Intake & Output 06/10/18 06/11/18 06/12/18 06/13/18 11:59 11:59 11:59 11:59 Intake Total 2978 / 2978 7763 / 7763 7337 / 7337 Balance 2978 / 2978 7763 / 7763 7337 / 7337 - Physical Exam Oriented: Normal Eyes: Normal Ear: Normal Nose: Normal Throat: Normal Respiratory: Generalized, Diminished Cardiovascular: Tachycardia. negative: S3, S4, Murmur : Normal Auscultation: Bowel Sounds: Increased Palpation: Normal Tenderness: Other (right flank pain ) Skin: Normal Musculoskeletal: Right (right flank pain ) Psychiatric: Normal Mood Description: Calm Affect: Normal Speech Pattern: Clear, Appropriate - Laboratory and Diagnostics Result Diagrams: 06/12/18 04:52 06/12/18 04:52 Labs: 06/10/18 12:46 Sputum - Expectorated Sputum Sputum Culture - Final 06/10/18 12:46 Sputum - Expectorated Sputum - Final 06/09/18 11:10 Blood Blood Culture - Preliminary 06/09/18 11:05 Blood Blood Culture - Preliminary Laboratory WBC 13.7 X10^3/uL (3.6-10.0) H 06/12/18 04:52 RBC 3.26 X10^6/uL (3.5-5.4) L 06/12/18 04:52 Hgb 9.7 g/dL (12.0-16.0) L 06/12/18 04:52 Hct 28.1 % (36.0-47.0) L 06/12/18 04:52 MCV 86.3 fL (80.0-100.0) 06/12/18 04:52 MCH 29.6 pg (27.0-34.0) 06/12/18 04:52 MCHC 34.3 g/dL (33.0-35.0) 06/12/18 04:52 RDW 13.5 % (11.6-16.5) 06/12/18 04:52 Plt Count 238 X10^3/uL (150.0-450.0) 06/12/18 04:52 Plt Count Comment Adequate (ADEQUATE) 06/11/18 05:12 MPV 7.4 fL (7.4-11.0) 06/12/18 04:52 Neut % (Auto) 80.3 % (42.0-75.0) H 06/12/18 04:52 Lymph % (Auto) 12.0 % (21.0-51.0) L 06/12/18 04:52 [place] % (Auto) 6.7 % (0.0-13.0) 06/12/18 04:52 Eos % (Auto) 0.5 % (0.9-2.9) L 06/12/18 04:52 Baso % (Auto) 0.5 % (0.2-1.0) 06/12/18 04:52 Neut # (Auto) 11.0 x10^3/uL (2.2-4.8) H 06/12/18 04:52 Lymph # (Auto) 1.7 X10^3/uL (1.3-2.9) 06/12/18 04:52 [place] # (Auto) 0.9 x10^3/uL (0.3-0.8) H 06/12/18 04:52 Eos # (Auto) 0.1 x10^3/uL (0.0-0.2) 06/12/18 04:52 Baso # (Auto) 0.1 X10^3/uL (0.0-0.1) 06/12/18 04:52 Absolute Nucleated RBC 0.0 /100WBC 06/12/18 04:52 Total Counted 100 06/11/18 05:12 Neutrophils % (Manual) 82 % (39-76) H 06/11/18 05:12 Band Neutrophils % 7 % (0-10) 06/11/18 05:12 Lymphocytes % (Manual) 10 % (13-43) L 06/11/18 05:12 Monocytes % (Manual) 1 % (4-9) L 06/11/18 05:12 Eosinophils % (Manual) 1 % (0-6) 06/09/18 08:45 Plt Morphology Comment Normal (NORMAL) 06/11/18 05:12 RBC Morphology Normal (NORMAL) 06/11/18 05:12 D-Dimer 341 ng/mL (0-400) 06/09/18 08:45 Sample Site Lrad 06/09/18 10:45 ABG pH 7.430 (7.35-7.45) 06/09/18 10:45 ABG pCO2 35.0 mmHg (35.0-45.0) 06/09/18 10:45 ABG pO2 58.0 mmHg (80.0-100.0) L 06/09/18 10:45 ABG HCO3 23.2 mmol/L (22-26) 06/09/18 10:45 ABG O2 Saturation 91.0 % (90-100) 06/09/18 10:45 ABG Base Excess -0.7 mmol/L (-2.0-2.0) 06/09/18 10:45 Lam Test Pos 06/09/18 10:45 A-a Gradient 48.0 mmHg 06/09/18 10:45 FiO2 21.0 06/09/18 10:45 Blood Gas Comments Pt haris well elj 06/09/18 10:45 Sodium 142 mmol/L (136-145) 06/12/18 04:52 Corrected Sodium TNP 06/12/18 04:52 Potassium 3.8 mmol/L (3.5-5.1) 06/12/18 04:52 Chloride 107 mmol/L (98-107) 06/12/18 04:52 Carbon Dioxide 22.9 mmol/L (21-32) 06/12/18 04:52 BUN 9 mg/dL (7-18) 06/12/18 04:52 Creatinine 0.66 mg/dL (0.55-1.02) 06/12/18 04:52 Est GFR (MDRD) Af Amer > 60 (>60) 06/12/18 04:52 Est GFR (MDRD) Non-Af > 60 (>60) 06/12/18 04:52 Glucose 85 mg/dL (65-99) 06/12/18 04:52 Lactic Acid 2.2 mmol/L (0.4-2.0) H 06/10/18 05:55 Calcium 7.8 mg/dL (8.5-10.1) L 06/12/18 04:52 Corrected Calcium 9.4 mg/dL (8.5-10.1) 06/12/18 04:52 Magnesium 2.5 mg/dL (1.7-2.9) 06/11/18 05:12 Total Bilirubin 0.30 mg/dL (0.2-1.0) 06/12/18 04:52 AST 19 Units/L (15-37) 06/12/18 04:52 ALT 29 Units/L (12-78) 06/12/18 04:52 Alkaline Phosphatase 111 Units/L (46-116) 06/12/18 04:52 Creatine Kinase 63 Units/L (26-192) 06/09/18 08:45 CK-MB (CK-2) 1.2 ng/mL (0-4.0) 06/09/18 08:45 CK/CKMB % Calc 1.9 % (<4) 06/09/18 08:45 Troponin I < 0.02 ng/mL (0-1.5) 06/09/18 08:45 Total Protein 5.4 g/dL (6.4-8.2) L 06/12/18 04:52 Albumin 2.0 g/dL (3.4-5.0) L 06/12/18 04:52 Globulin 3.4 g/dL (2.5-4.5) 06/12/18 04:52 Albumin/Globulin Ratio 0.6 Ratio (1.1-2.1) L 06/12/18 04:52 Amylase 39 Units/L (25-115) 06/09/18 08:45 Lipase 72 Units/L (73-393) L 06/09/18 08:45 Specimen Type Clean catch urine 06/09/18 10:05 Urine Color Yellow (YELLOW) 06/09/18 10:05 Urine Appearance Slightly hazy (CLEAR) 06/09/18 10:05 Urine pH 6.0 (5.0 - 8.0) 06/09/18 10:05 Ur Specific [place] 1.020 (1.000-1.030) 06/09/18 10:05 Urine Protein 1+ (NEGATIVE) 06/09/18 10:05 Urine Glucose (UA) Negative (NEGATIVE) 06/09/18 10:05 Urine Ketones Negative (NEGATIVE) 06/09/18 10:05 Urine Occult Blood 2+ (NEGATIVE) 06/09/18 10:05 Urine Nitrite Negative (NEGATIVE) 06/09/18 10:05 Urine Bilirubin Negative (NEGATIVE) 06/09/18 10:05 Urine Urobilinogen Normal (NORMAL) 06/09/18 10:05 Ur Leukocyte Esterase 2+ (NEGATIVE) 06/09/18 10:05 Urine RBC 5-10 /HPF (NONE SEEN) 06/09/18 10:05 Urine WBC 0-2 /HPF (NONE SEEN) 06/09/18 10:05 Ur Squamous Epith Cells Rare /HPF (NEGATIVE) 06/09/18 10:05 Urine Bacteria Negative /HPF (NEGATIVE) 06/09/18 10:05 Ur Culture Indicated? No/not indicated 06/09/18 10:05 - Plan (1) Pneumonia Status: Acute Qualifiers: Pneumonia type: due to unspecified organism Laterality: bilateral Lung location: unspecified part of lung Qualified Code(s): J18.9 - Pneumonia, unspecified organism Plan: pneumonia protocol, fortaz, levaquin, respiratory treatments, supplemental oxygen, tessalon, tussionex, continue to monitor (2) Pleurisy Status: Acute Plan: TORADOL 30MG IV Q6H PRN, CONTINUE TO MONITOR (3) Hypotension Status: Acute Qualifiers: Hypotension type: unspecified hypotension type Qualified Code(s): I95.9 - Hypotension, unspecified Plan: NORMAL SALINE BOLUS, THEN NORMAL SALINE AT 250ML/HR, CONTINUE TO MONITOR
--- NOTE | 2018-06-12 12:25 | PCM.PROG ---
Progress Note - Progress Note for Day of Date of Exam: 06/11/18 - Subjective Subjective: WAS ADMITTED FOR BILATERAL LOWER LOBE PNEUMONIA. TODAY, SHE IS ALERT AND ORIENTED, LYING IN BED ON MORNING ROUNDS. SHE CONTINUES WITH COMPLAINTS OF A NON-PRODUCTIVE COUGH AND SHORTNESS OF BREATH. SHE CONTINUES WITH PAIN TO THE RIGHT RIB AREA. ON EXAMINATION, HEART IS REGULAR IN RATE AND RHYTHM. BILATERAL LUNGS ARE NOTED WITH DIMINISHED LUNG SOUNDS THROUGHT. ABDOMEN IS FLAT, SOFT, AND NON-TENDER WITH NORMAL BOWEL SOUNDS NOTED IN ALL QUADRANTS. HER VITALS THIS MORNING ARE 98.1-69-39-100-114/59. LABS WERE OBTAINED. ABNORMAL LAB VALUES INCLUDE THE FOLLOWING: WBC 15.9, HGB 11.1, HCT 32.7, POTASSIUM 3.2, GLUCOSE 109, CALCIUM 8.0, TOTAL PROTEIN 5.9, ALBUMIN 2.4. BLOOD CULTURE ARE BEING REPORTED POSITIVE. CULTURES WERE SENT OF FOR IDENTIFICATION. TODAYS CHEST XRAY REVEALED: Stable trace right pleural effusion and right greater than left lower lobe airspace disease. SHE IS CURRENTLY RECEIVING LEVAQUIN IV AND FORTAZ IV WELL RESPIRATORY TREATMENTS, SUPPLEMENTAL OXYGEN, AND TUSSIONEX, AND TORADOL Q6H PRN. WE WILL CONTINUE WITH CURRENT PLAN OF CARE TODAY. OTHERWISE, WE WILL FOLLOW UP WITH AM LABS AND CHEST XRAY AND CONTINUE TO MONITOR. - Past Medical Family Social History Past Med/Fam/Surg Hx: No changes since H&P Allergies: Allergies No Known Drug Allergies Allergy (Verified 06/09/18 08:52) - Review of Systems ROS: No change since H&P - Vital Signs and I&O's Vital Signs: Temperature 99.3 F Pulse Rate [Apical] 139 Pulse Rate 85 Respiratory Rate 16 Blood Pressure [Right Arm] 121/60 Blood Pressure 148/71 O2 Sat by Pulse Oximetry 99 Intake and Output: Intake & Output 06/10/18 06/11/18 06/12/18 06/13/18 11:59 11:59 11:59 11:59 Intake Total 2978 / 2978 7763 / 7763 7337 / 7337 Balance 2978 / 2978 7763 / 7763 7337 / 7337 - Physical Exam Oriented: Normal Eyes: Normal Ear: Normal Nose: Normal Throat: Normal Respiratory: Generalized, Diminished Cardiovascular: Tachycardia. negative: S3, S4, Murmur : Normal Auscultation: Bowel Sounds: Increased Tenderness: Other (right flank pain ) Skin: Normal Musculoskeletal: Right (right flank pain ) Psychiatric: Normal Mood Description: Calm Affect: Normal Speech Pattern: Clear, Appropriate - Laboratory and Diagnostics Result Diagrams: 06/12/18 04:52 06/12/18 04:52 Labs: 06/10/18 12:46 Sputum - Expectorated Sputum Sputum Culture - Final 06/10/18 12:46 Sputum - Expectorated Sputum - Final 06/09/18 11:10 Blood Blood Culture - Preliminary 06/09/18 11:05 Blood Blood Culture - Preliminary Laboratory WBC 13.7 X10^3/uL (3.6-10.0) H 06/12/18 04:52 RBC 3.26 X10^6/uL (3.5-5.4) L 06/12/18 04:52 Hgb 9.7 g/dL (12.0-16.0) L 06/12/18 04:52 Hct 28.1 % (36.0-47.0) L 06/12/18 04:52 MCV 86.3 fL (80.0-100.0) 06/12/18 04:52 MCH 29.6 pg (27.0-34.0) 06/12/18 04:52 MCHC 34.3 g/dL (33.0-35.0) 06/12/18 04:52 RDW 13.5 % (11.6-16.5) 06/12/18 04:52 Plt Count 238 X10^3/uL (150.0-450.0) 06/12/18 04:52 Plt Count Comment Adequate (ADEQUATE) 06/11/18 05:12 MPV 7.4 fL (7.4-11.0) 06/12/18 04:52 Neut % (Auto) 80.3 % (42.0-75.0) H 06/12/18 04:52 Lymph % (Auto) 12.0 % (21.0-51.0) L 06/12/18 04:52 [place] % (Auto) 6.7 % (0.0-13.0) 06/12/18 04:52 Eos % (Auto) 0.5 % (0.9-2.9) L 06/12/18 04:52 Baso % (Auto) 0.5 % (0.2-1.0) 06/12/18 04:52 Neut # (Auto) 11.0 x10^3/uL (2.2-4.8) H 06/12/18 04:52 Lymph # (Auto) 1.7 X10^3/uL (1.3-2.9) 06/12/18 04:52 [place] # (Auto) 0.9 x10^3/uL (0.3-0.8) H 06/12/18 04:52 Eos # (Auto) 0.1 x10^3/uL (0.0-0.2) 06/12/18 04:52 Baso # (Auto) 0.1 X10^3/uL (0.0-0.1) 06/12/18 04:52 Absolute Nucleated RBC 0.0 /100WBC 06/12/18 04:52 Total Counted 100 06/11/18 05:12 Neutrophils % (Manual) 82 % (39-76) H 06/11/18 05:12 Band Neutrophils % 7 % (0-10) 06/11/18 05:12 Lymphocytes % (Manual) 10 % (13-43) L 06/11/18 05:12 Monocytes % (Manual) 1 % (4-9) L 06/11/18 05:12 Eosinophils % (Manual) 1 % (0-6) 06/09/18 08:45 Plt Morphology Comment Normal (NORMAL) 06/11/18 05:12 RBC Morphology Normal (NORMAL) 06/11/18 05:12 D-Dimer 341 ng/mL (0-400) 06/09/18 08:45 Sample Site Lrad 06/09/18 10:45 ABG pH 7.430 (7.35-7.45) 06/09/18 10:45 ABG pCO2 35.0 mmHg (35.0-45.0) 06/09/18 10:45 ABG pO2 58.0 mmHg (80.0-100.0) L 06/09/18 10:45 ABG HCO3 23.2 mmol/L (22-26) 06/09/18 10:45 ABG O2 Saturation 91.0 % (90-100) 06/09/18 10:45 ABG Base Excess -0.7 mmol/L (-2.0-2.0) 06/09/18 10:45 Lam Test Pos 06/09/18 10:45 A-a Gradient 48.0 mmHg 06/09/18 10:45 FiO2 21.0 06/09/18 10:45 Blood Gas Comments Pt haris well elj 06/09/18 10:45 Sodium 142 mmol/L (136-145) 06/12/18 04:52 Corrected Sodium TNP 06/12/18 04:52 Potassium 3.8 mmol/L (3.5-5.1) 06/12/18 04:52 Chloride 107 mmol/L (98-107) 06/12/18 04:52 Carbon Dioxide 22.9 mmol/L (21-32) 06/12/18 04:52 BUN 9 mg/dL (7-18) 06/12/18 04:52 Creatinine 0.66 mg/dL (0.55-1.02) 06/12/18 04:52 Est GFR (MDRD) Af Amer > 60 (>60) 06/12/18 04:52 Est GFR (MDRD) Non-Af > 60 (>60) 06/12/18 04:52 Glucose 85 mg/dL (65-99) 06/12/18 04:52 Lactic Acid 2.2 mmol/L (0.4-2.0) H 06/10/18 05:55 Calcium 7.8 mg/dL (8.5-10.1) L 06/12/18 04:52 Corrected Calcium 9.4 mg/dL (8.5-10.1) 06/12/18 04:52 Magnesium 2.5 mg/dL (1.7-2.9) 06/11/18 05:12 Total Bilirubin 0.30 mg/dL (0.2-1.0) 06/12/18 04:52 AST 19 Units/L (15-37) 06/12/18 04:52 ALT 29 Units/L (12-78) 06/12/18 04:52 Alkaline Phosphatase 111 Units/L (46-116) 06/12/18 04:52 Creatine Kinase 63 Units/L (26-192) 06/09/18 08:45 CK-MB (CK-2) 1.2 ng/mL (0-4.0) 06/09/18 08:45 CK/CKMB % Calc 1.9 % (<4) 06/09/18 08:45 Troponin I < 0.02 ng/mL (0-1.5) 06/09/18 08:45 Total Protein 5.4 g/dL (6.4-8.2) L 06/12/18 04:52 Albumin 2.0 g/dL (3.4-5.0) L 06/12/18 04:52 Globulin 3.4 g/dL (2.5-4.5) 06/12/18 04:52 Albumin/Globulin Ratio 0.6 Ratio (1.1-2.1) L 06/12/18 04:52 Amylase 39 Units/L (25-115) 06/09/18 08:45 Lipase 72 Units/L (73-393) L 06/09/18 08:45 Specimen Type Clean catch urine 06/09/18 10:05 Urine Color Yellow (YELLOW) 06/09/18 10:05 Urine Appearance Slightly hazy (CLEAR) 06/09/18 10:05 Urine pH 6.0 (5.0 - 8.0) 06/09/18 10:05 Ur Specific [place] 1.020 (1.000-1.030) 06/09/18 10:05 Urine Protein 1+ (NEGATIVE) 06/09/18 10:05 Urine Glucose (UA) Negative (NEGATIVE) 06/09/18 10:05 Urine Ketones Negative (NEGATIVE) 06/09/18 10:05 Urine Occult Blood 2+ (NEGATIVE) 06/09/18 10:05 Urine Nitrite Negative (NEGATIVE) 06/09/18 10:05 Urine Bilirubin Negative (NEGATIVE) 06/09/18 10:05 Urine Urobilinogen Normal (NORMAL) 06/09/18 10:05 Ur Leukocyte Esterase 2+ (NEGATIVE) 06/09/18 10:05 Urine RBC 5-10 /HPF (NONE SEEN) 06/09/18 10:05 Urine WBC 0-2 /HPF (NONE SEEN) 06/09/18 10:05 Ur Squamous Epith Cells Rare /HPF (NEGATIVE) 06/09/18 10:05 Urine Bacteria Negative /HPF (NEGATIVE) 06/09/18 10:05 Ur Culture Indicated? No/not indicated 06/09/18 10:05 - Plan (1) Pneumonia Status: Acute Qualifiers: Pneumonia type: due to unspecified organism Laterality: bilateral Lung location: unspecified part of lung Qualified Code(s): J18.9 - Pneumonia, unspecified organism Plan: pneumonia protocol, fortaz, levaquin, respiratory treatments, supplemental oxygen, tessalon, tussionex, continue to monitor (2) Pleurisy Status: Acute Plan: TORADOL 30MG IV Q6H PRN, CONTINUE TO MONITOR (3) Hypotension Status: Acute Qualifiers: Hypotension type: unspecified hypotension type Qualified Code(s): I95.9 - Hypotension, unspecified Plan: NORMAL SALINE BOLUS, THEN NORMAL SALINE AT 250ML/HR, CONTINUE TO MONITOR
[2018-06-12] MEDS: TORADOL 30 MG VIAL IVP PRN (12:49)
[2018-06-12] MEDS: COLACE CAP 100 MG PO PRN ×2 (16:24→21:10)
[2018-06-12] MEDS ORDERED: COLACE CAP 100 MG PO ONE (16:25)
[2018-06-12] MEDS: TUSSIONEX PENNKINETIC SUSP PO PRN (21:10)
[2018-06-13] MEDS: XOPENEX 1.25 MG/3 ML NEBULE NEB SCH ×2 (01:09→05:37)
[2018-06-13] MEDS: TYLENOL 325 MG TAB PO PRN ×2 (03:20→09:20)
[2018-06-13] MEDS: NS 1000 ML 1,000 ML IV SCH ×2 (05:19→12:20)
[2018-06-13] MEDS: FORTAZ or TAZICEF VIAL INJ IVP SCH (05:57)
[2018-06-13 06:29] LABS: BASOPHILS # (AUTO) 0.1 X10^3/uL (0.0-0.1); BASOPHILS % (AUTO) 0.8 % (0.2-1.0); EOSINOPHILS # (AUTO) 0.1 x10^3/uL (0.0-0.2); HEMATOCRIT 28.7 % (36.0-47.0); HEMOGLOBIN 9.9 g/dL (12.0-16.0); LYMPHOCYTES # (AUTO) 1.7 X10^3/uL (1.3-2.9); MEAN CORPUSCULAR HGB CONC 34.6 g/dL (33.0-35.0); MEAN CORPUSCULAR VOLUME 86.6 fL (80.0-100.0); MONOCYTES % (AUTO) 10.6 % (0.0-13.0); NEUTROPHILS # (AUTO) 6.4 x10^3/uL (2.2-4.8); NEUTROPHILS % (AUTO) 69.6 % (42.0-75.0); PLATELET COUNT 263 X10^3/uL (150.0-450.0); RED BLOOD COUNT 3.32 X10^6/uL (3.5-5.4); RED CELL DISTRIBUTION WIDTH 13.6 % (11.6-16.5); WHITE BLOOD COUNT 9.2 X10^3/uL (3.6-10.0)
--- NOTE | 2018-06-13 06:45 | RAD ---
History: Shortness of breath Study: AP chest Comparison: Yesterday Findings: There is no significant change of diffuse airspace disease in the right lower lobe with thickening of the minor fissure. The left lung by comparison is grossly clear. The heart size is normal. Impression: Persistent right perihilar primarily right lower lobe pneumonia Reported By:
[2018-06-13 06:46] LABS: ALANINE AMINOTRANSFERASE 29 Units/L (12-78); ALBUMIN 2.1 g/dL (3.4-5.0); ALKALINE PHOSPHATASE 143 Units/L (46-116); ASPARTATE AMINO TRANSFERASE 21 Units/L (15-37); BLOOD UREA NITROGEN 6 mg/dL (7-18); CALCIUM 8.1 mg/dL (8.5-10.1); CHLORIDE 105 mmol/L (98-107); COR CA(FOR HYPOALB) 9.6 mg/dL (8.5-10.1); CREATININE 0.65 mg/dL (0.55-1.02); SODIUM 140 mmol/L (136-145); TOTAL PROTEIN 5.7 g/dL (6.4-8.2); eGFR NON BLACK RACES > 60 (>60)
[2018-06-13] MEDS: TORADOL 30 MG VIAL IVP PRN (07:03)
[2018-06-13] MEDS: K-DUR TAB 20 MEQ PO PRN (07:04)
[2018-06-13 07:24] LABS: PLATELET MORPHOLOGY COMMENT NORMAL (NORMAL)
[2018-06-13] MEDS: LEVAQUIN PREMIX IV 750 MG 750 MG/150 ML BAG IV SCH (08:10)
[2018-06-13] MEDS: LOVENOX INJ 40 MG SYR SC SCH (08:11)
[2018-06-13] MEDS: ROBITUSSIN DM PO SCH (08:11)
[2018-06-13 12:18] VITALS: BP 140/74
--- NOTE | 2018-07-03 23:33 | DR.CARTERD ---
- Discharge Summary for: Discharge Summary for Date of:: 06/13/18 - Admission Date Date of Admission: 06/09/18 - Admission Diagnoses Admission Diagnosis: (1) Pneumonia - Discharge Date Discharge Date: 06/13/18 - Discharge Diagnoses Discharge Diagnosis: (1) Pneumonia (2) Pleurisy (3) Hypotension - Hospital Course Hospital Course: DAY ONE, IS A 57 YEAR OLD PATIENT OF [facility] WHO PRESENTED TO THE EMERGENCY ROOM WITH COMPLAINTS OF RIGHT FLANK PAIN, SUBSTERNAL PAIN, SHORTNESS OF BREATH, NAUSEA, AND VOMITING. SHE REPORTED THAT PAIN WOKE HER UP AROUND 5AM TODAY. ON ARRIVAL, VITALS WERE 97.9-127-22-94%-133/86. LABS WERE OBTAINED. ABNORMAL LAB VALUES INCLUDED THE FOLLOWING: WBC 10.1, GLUCOSE 119, AST 73, ALT 96, ALK PHOS 131. CARDIAC ENZYMES WITHIN NORMAL LIMITS. URINALYSIS REVEALED: WBC 0-2, RBC 5-10, LEUKOCYTES 2+, OCCULT BLOOD 2+, PROTEIN 1+. AN ABDOMEN/PELVIS CT WITHOUT CONTRAST WAS OBTAINED AND REVEALED: Dense, partially imaged right lower lobe infiltrate. CT scanning of the chest with IV contrast should be performed. An underlying mass will need to be excluded. Tiny nonobstructing stone in the lower pole of the right kidney. No evidence of perinephric stranding, mass or hydronephrosis is seen. Non-identification of the appendix. No pericecal mass or fluid is identified. Prominent uterus. No adnexal mass or free cul-de-sac fluid is seen. CHEST XRAY REVEALED: Right perihilar infiltrate and possible mass is well. Recommend CT of the chest. CT of the The abdomen is been performed as a stone search but the chest was on not completely included on that study. CHEST CTA WAS OBTAINED AND REVEALED: Bilateral lung infiltrates, very dense in the right hilar region, but without apparent underlying mass effect. Follow-up to complete clearing is suggested radiographically. Since there is air in fluid present within the esophagus, indicating gastroesophageal reflux, a component of aspiration may be present. No evidence of pulmonary nodule or adenopathy or effusion. No evidence of pulmonary embolus or thoracic aortic aneurysm. EKG REVEALED: SINUS TACHYCARDIA WITH HR 114. SHE WAS GIVEN A NEB TX, MORPHINE 4MG IV X 1, ZOFRAN 4MG IV X 1, LEVAQUIN 750MG IV X 1, TORADOL 30MG IV X 1, AND A NORMAL SALINE BOLUS IN THE ER. SHE WAS ADMITTED FOR FURTHER EVAUATION AND TREATMENT OF BILATERAL LOWER LOBE LOBE PNEUMONIA AND RIGHT FLANK PAIN. SHE WAS STARTED ON NORMAL SALINE AT 125ML/HR, LEVAQUIN 750MG IV DAILY, FORTAZ 1GM IV Q8H, RESPIRATORY TREATMENTS, MORPHINE 4MG IV Q4H PRN, AND ZOFRAN 4MG IV Q8H PRN. WE FOLLOWED UP WITH AM LABS AND CHEST XRAY AND CONTINUED TO MONITOR. DAY TWO, SHE WAS ALERT AND ORIENTED, LYING IN BED ON MORNING ROUNDS. SHE CONTINUED WITH COMPLAINTS OF A NON-PRODUCTIVE COUGH AND SHORTNESS OF BREATH. SHE ALSO CONTINUED WITH FLANK PAIN AND PAIN TO THE RIGHT UPPER RIB AREA. ON EXAMINATION, HEART WAS REGULAR IN RATE AND RHYTHM. BILATERAL LUNGS WERE NOTED WITH DIMINISHED LUNG SOUNDS THROUGHT. ABDOMEN WAS FLAT, SOFT, AND NON-TENDER WITH NORMAL BOWEL SOUNDS NOTED IN ALL QUADRANTS. HER VITALS THIS MORNING WERE 98.6-101-19-99%-97/56. LABS WERE OBTAINED. ABNORMAL LAB VALUES INCLUDED THE FOLLOWING: WBC 11.1, HGB 11.1, HCT 32.8, CALCIUM 8.1, TOTAL PROTEIN 6.1, ALBUMIN 2.7, LACTIC ACID 2.2, MAGNESIUM 1.3. TODAYS CHEST XRAY REVEALED: Progression of right-sided perihilar infiltrates with volume loss, elevation of the right hemidiaphragm and likely pleural effusion. Very mild left basilar infiltrates are present. SHE RECEIVED LEVAQUIN IV AND FORTAZ IV WELL RESPIRATORY TREATMENTS, SUPPLEMENTAL OXYGEN, AND TUSSIONEX. WE CONTINUED WITH CURRENT PLAN OF CARE TODAY AND ADDED TORADOL 30MG IV Q6H PRN FOR PLEURISY. WE ALSO GAVE HER A ONE LITER BOLUS OF NORMAL SALINE AND THEN INCREASED RATE TO 250ML/HR. WE FOLLOWED UP WITH AM LABS AND CHEST XRAY AND CONTINUED TO MONITOR. DAY THREE, SHE WAS ALERT AND ORIENTED, LYING IN BED ON MORNING ROUNDS. SHE CONTINUED WITH COMPLAINTS OF A NON- PRODUCTIVE COUGH AND SHORTNESS OF BREATH. SHE CONTINUED WITH PAIN TO THE RIGHT RIB AREA. ON EXAMINATION, HEART WAS REGULAR IN RATE AND RHYTHM. BILATERAL LUNGS WERE NOTED WITH DIMINISHED LUNG SOUNDS THROUGHT. ABDOMEN WAS FLAT, SOFT, AND NON-TENDER WITH NORMAL BOWEL SOUNDS NOTED IN ALL QUADRANTS. HER VITALS THIS MORNING WERE 98.3-72-68-100-114/59. LABS WERE OBTAINED. ABNORMAL LAB VALUES INCLUDED THE FOLLOWING: WBC 15.9, HGB 11.1, HCT 32.7, POTASSIUM 3.2, GLUCOSE 109, CALCIUM 8.0, TOTAL PROTEIN 5.9, ALBUMIN 2.4. BLOOD CULTURE WERE REPORTED POSITIVE. CULTURES WERE SENT OUT FOR IDENTIFICATION. TODAYS CHEST XRAY REVEALED: Stable trace right pleural effusion and right greater than left lower lobe airspace disease. SHE WAS RECEIVING LEVAQUIN IV AND FORTAZ IV WELL RESPIRATORY TREATMENTS, SUPPLEMENTAL OXYGEN, AND TUSSIONEX, AND TORADOL Q6H PRN. WE CONTINUED WITH CURRENT PLAN OF CARE TODAY. WE FOLLOWED UP WITH AM LABS AND CHEST XRAY AND CONTINUED TO MONITOR. DAY FOUR, CHEST X-RAY REVEALED: Persistent asymmetric infiltrates with no significant change since 1 day prior. WE CONTINUED WITH CURRENT PLAN OF CARE AND CONTINUED TO MONITOR PATIENT. DAY FIVE, PATIENT LYING IN BED ALERT AND ORIENTED DURING MORNING ROUNDS. CHEST X-RAY REVEALED: Persistent right perihilar primarily right lower lobe pneumonia. BILATERAL LUNG SOUNDS NOTED TO BE DIMINISHED. RESPIRATIONS NOTED TO BE NON- LABORED. NO SIGNS AND SYMPTOMS OF ACUTE DISTRESS NOTED. BLOOD PRESSURE HAS BEEN STABLE THROUGHOUT THE NIGHT. VITALS ARE STABLE. WBC LEVEL IS NOW WITHIN NORMAL LIMITS AT 9.2. LABS ARE WITHIN NORMAL RANGE FOR PATIENT. WE PLANNED FOR DISCHARGE. INSTRUCTIONS FOR MEDICATIONS AND FOLLOW UP WERE DISCUSSED WITH PATIENT AND FAMILY, BOTH VOICED UNDERSTANDING. PATIENT WAS DISCHARGED HOME IN STABLE CONDITION WITH FAMILY. - Discharge Medications Discharge Medications: Home Medication List dextromethorphan-guaifenesin [Mucinex DM] 1 tab PO Q12H #20 tab 06/13/18 [Rx] hydrocodone-chlorpheniramine 5 ml PO Q12H PRN #240 ml 06/13/18 [Rx] ipratropium-albuterol 1 neb NEB TID #90 each 06/13/18 [Rx] levofloxacin [Levaquin] 750 mg PO QDAY #10 tab 06/13/18 [Rx] Prescriptions: dextromethorphan-guaifenesin [Mucinex DM] Gal Matthews hydrocodone-chlorpheniramine Gal Matthews ipratropium-albuterol Gal Matthews levofloxacin [Levaquin] Gal Matthews - Discharge Disposition Discharge Disposition: PATIENT TO FOLLOW UP WITH PCP (SHAWN MCLAUGHLIN) IN ONR WEEK.
== END 2018-06-13 12:30 | disposition home or self-care (01) | DRG 195 ==
LOC: ER 08:20 → ICU 12:26
PROVIDERS: ADMIT Internal Medicine; ATTEND Internal Medicine
DX: I95.89 Other hypotension; R11.2 Nausea with vomiting, unspecified; K21.9 Gastro-esophageal reflux disease without esophagitis; J18.8 Other pneumonia, unspecified organism; R94.31 Abnormal electrocardiogram [ECG] [EKG]; R10.84 Generalized abdominal pain; R00.0 Tachycardia, unspecified; R06.02 Shortness of breath; R07.89 Other chest pain; R09.1 Pleurisy
CPT/HCPCS: 36415; 36600; 71010; 71020; 71045; 71046; 71275; 74176; 80053; 81001; 82150; 82550; 82553; 82803; 83605; 83690; 83735; 84132; 84484; 85025; 85378; 87040; 87070; 87077; 87185; 87186; 87205; 93005; 93010; 94640; 96365; 96367; 96374; 96375; 99283; 99285; A4222; J0713; J1650; J1885; J1956; J2270; J2405; J3475; J3490; J7030; J7050